=== PATIENT | male | born 1960 | race Caucasian/White ===

== ENCOUNTER 2022-11-03 13:35 | Inpatient (IN) ==
[2022-11-03] MEDS ORDERED: Lactated Ringers 1000 ml BAG 1,000 ML IV ONE ×2 (13:50→15:21)
[2022-11-03 14:35] LABS: Hemoglobin 13.5 g/dL (13.2-16.3); Mean Corpuscular Hgb Conc 33.8 g/dL (31-36); Mean Corpuscular Volume 82.9 fL (80-97); Mean Platelet Volume 7.1 fL (7.5-11.2); Platelet Count 252 10^3/uL (150-450); Red Blood Count 4.82 10^6/uL (4.06-5.63); Red Cell Distribution Width 14.9 % (12-17); White Blood Count 23.5 10^3/uL (3.6-10.2)
[2022-11-03 14:47] LABS: Alcohol, S < 13 mg/dL (<13)
[2022-11-03 14:49] LABS: ALT 25 U/L (7-52); AST 55 U/L (13-39); Albumin 3.6 g/dL (3.2-5.2); Albumin/Globulin Ratio 0.8 (1-3); Alkaline Phosphatase 115 U/L (35-149); Anion Gap 15 mmol/L (2-16); Blood Urea Nitrogen 21 mg/dL (6-24); C Reactive Protein 311.75 mg/L (<8.01); CO2 Carbon Dioxide 20 mmol/L (22-32); Calcium 8.8 mg/dL (8.6-10.3); Chloride 99 mmol/L (101-111); Creatinine, Serum 1.69 mg/dL (0.67-1.17); Globulin 4.5 g/dL (2-4); Glucose 255 mg/dL (70-100); Potassium 3.3 mmol/L (3.5-5.0); Sodium 134 mmol/L (135-145); Total Protein 8.1 g/dL (6.4-8.9); eGFR CKD-EPI 45.3 (>60)
[2022-11-03 14:55] LABS: High Sens Troponin Baseline 194 pg/mL (<20)
[2022-11-03 15:01] LABS: ABS Basophils 0.1 10^3/uL (0.0-0.1); ABS Lymphocytes 0.3 10^3/uL (1.0-4.8); ABS Monocytes 1.1 10^3/uL (0.0-1.1); Lymphocyte % 1.1 %
[2022-11-03 15:03] LABS: Activated Partial Thrombo Time 32.3 seconds (26.0-38.0); INR 1.34 (0.88-1.18)
[2022-11-03] MEDS ORDERED: Iodixanol (CONTRAST) 320 MG/ML 100 ML SDV IV ONE (15:03)
[2022-11-03] MEDS ORDERED: Vancomycin 1,500 MG in NS 0.9% 250 ml 250 ML IVPB ONE (15:20)
[2022-11-03] MEDS ORDERED: Cefepime 2 GM in Dextrose 2 GM/50 ML BAG IV ONE (15:20)
[2022-11-03 15:26] LABS: Creatine Kinase 5563 U/L (10-223)
[2022-11-03 16:03] LABS: High Sensitivity Troponin 1 Hr 207 pg/mL (<20)
[2022-11-03] MEDS ORDERED: LACTATED RINGERS IV ONE (16:32)
[2022-11-03] MEDS: Lactated Ringers 1000 ml BAG 1,000 ML IV ONE ×2 (16:47→17:14)
[2022-11-03] MEDS ORDERED: Dextrose 50% Syringe 50 ml 25 GM/50 ML SYRINGE IV PUSH PRN (18:04)
[2022-11-03] MEDS ORDERED: Potassium Chlor 20 meq TAB.ER PO ONE (18:06)
[2022-11-03 18:19] LABS: TSH Ultra Thyroid Stim Horm 2.78 mcIU/mL (0.34-5.60)
[2022-11-03 18:23] LABS: Venous Bicarbonate HCO3 27.2 mmol/L (24-28)
[2022-11-03 18:35] LABS: Magnesium 1.7 mg/dL (1.9-2.7)
[2022-11-03 21:44] LABS: Urine Appearance Cloudy; Urine Bilirubin Negative (Negative); Urine Blood 3+ (Negative); Urine Color Amber; Urine Glucose Negative (Negative); Urine Ketones Negative (Negative); Urine Nitrite Negative (Negative); Urine Protein 2+(100 mg/dL) (Negative); Urine Urobilinogen Negative (Negative)
[2022-11-03 21:50] LABS: Urine Amorphous Crystals Present (Absent); Urine Bacteria Absent (Absent); Urine Red Blood Cell 3+(>10/hpf) (Absent); Urine Squamous Epithelial Cell Present (Absent); Urine White Blood Cell 1+(6-10/hpf) (Absent)
[2022-11-03 22:12] LABS: Urine Specific Gravity > 1.060 (1.002-1.030)
[2022-11-03] MEDS: Enoxaparin 40 MG/0.4 ML SYR SUBCUT SCH (22:16)
[2022-11-03] MEDS ORDERED: cefTRIAXone 2 gm/50 mL D5W 2 GM/50 ML BAG IV SCH (22:45)
[2022-11-03] MEDS: Lactated Ringers 1000 ml BAG 1,000 ML IV SCH (22:51)
[2022-11-03] MEDS: Acetaminophen IV 1 GM/100ML 1,000 MG/100 ML BAG IV PRN (22:51)
[2022-11-03] MEDS: Azithromycin 500 mg/250 ml NS 500 MG/250 ML BAG IVPB SCH (23:19)
[2022-11-04] MEDS: cefTRIAXone 2 gm/50 mL D5W 2 GM/50 ML BAG IV SCH (04:37)
[2022-11-04] MEDS: Acetaminophen IV 1 GM/100ML 1,000 MG/100 ML BAG IV PRN (05:01)
[2022-11-04 05:11] LABS: ABS Lymphocytes 0.5 10^3/uL (1.0-4.8); ABS Neutrophils 16.2 10^3/uL (1.5-7.6); ABS Nucleated RBC 0.01 10^3/ul; Hematocrit 37.4 % (38-53); Hemoglobin 12.7 g/dL (13.2-16.3); Lymphocyte % 2.9 %; Mean Corpuscular Hemoglobin 28.2 pg (27-33); Mean Corpuscular Hgb Conc 33.9 g/dL (31-36); Mean Corpuscular Volume 83.1 fL (80-97); Platelet Count 215 10^3/uL (150-450); White Blood Count 17.8 10^3/uL (3.6-10.2)
[2022-11-04 05:27] LABS: Albumin/Globulin Ratio 0.7 (1-3); Calcium 8.2 mg/dL (8.6-10.3); Creatinine, Serum 1.61 mg/dL (0.67-1.17); Globulin 4.2 g/dL (2-4); HDL Cholesterol 22.4 mg/dL; Magnesium 1.8 mg/dL (1.9-2.7); Phosphorus 2.5 mg/dL (2.5-5.0); Potassium 3.5 mmol/L (3.5-5.0); Total Bilirubin 0.8 mg/dL (0.2-1.0); Total Protein 7.2 g/dL (6.4-8.9); eGFR CKD-EPI 48.1 (>60)
[2022-11-04] MEDS: Lactated Ringers 1000 ml BAG 1,000 ML IV SCH ×2 (07:00→19:30)
[2022-11-04] MEDS ORDERED: Potassium Chlor 20 meq TAB.ER PO ONE (07:47)
[2022-11-04] MEDS ORDERED: Magnesium Sulfate 2 gm BAG 2 GM/50 ML BAG IVPB ONE (07:47)
[2022-11-04] MEDS: Enoxaparin 40 MG/0.4 ML SYR SUBCUT SCH (19:36)
[2022-11-04] MEDS: Azithromycin 500 mg/250 ml NS 500 MG/250 ML BAG IVPB SCH (22:12)
[2022-11-05] MEDS: cefTRIAXone 2 gm/50 mL D5W 2 GM/50 ML BAG IV SCH (03:37)
[2022-11-05 05:11] LABS: ABS Lymphocytes 0.5 10^3/uL (1.0-4.8); ABS Monocytes 0.6 10^3/uL (0.0-1.1); ABS Neutrophils 8.9 10^3/uL (1.5-7.6); Hemoglobin 12.1 g/dL (13.2-16.3); Lymphocyte % 5.3 %; Mean Corpuscular Hemoglobin 28.4 pg (27-33); Mean Corpuscular Hgb Conc 34.6 g/dL (31-36); Mean Corpuscular Volume 82.2 fL (80-97); Platelet Count 195 10^3/uL (150-450); Red Blood Count 4.26 10^6/uL (4.06-5.63)
[2022-11-05] MEDS: Lactated Ringers 1000 ml BAG 1,000 ML IV SCH (05:28)
[2022-11-05 05:29] LABS: Albumin 2.8 g/dL (3.2-5.2); Albumin/Globulin Ratio 0.8 (1-3); Calcium 7.5 mg/dL (8.6-10.3); Creatinine, Serum 1.1 mg/dL (0.67-1.17); Globulin 3.7 g/dL (2-4); Magnesium 2.1 mg/dL (1.9-2.7); Phosphorus 2.3 mg/dL (2.5-5.0); Potassium 3.3 mmol/L (3.5-5.0); Total Bilirubin 0.5 mg/dL (0.2-1.0); Total Protein 6.5 g/dL (6.4-8.9); eGFR CKD-EPI 75.9 (>60)
[2022-11-05] MEDS ORDERED: Potassium Chlor 20 meq TAB.ER PO ONE ×2 (07:14→10:00)
[2022-11-05 17:07] LABS: ABS Lymphocytes 0.6 10^3/uL (1.0-4.8); ABS Monocytes 0.5 10^3/uL (0.0-1.1); ABS Neutrophils 6.3 10^3/uL (1.5-7.6); Eosinophil % 0.1 %; Hematocrit 32.8 % (38-53); Hemoglobin 11.2 g/dL (13.2-16.3); Lymphocyte % 8.1 %; Mean Corpuscular Hemoglobin 28.1 pg (27-33); Mean Corpuscular Hgb Conc 34.1 g/dL (31-36); Mean Corpuscular Volume 82.5 fL (80-97); Mean Platelet Volume 7.3 fL (7.5-11.2); Platelet Count 178 10^3/uL (150-450); Red Blood Count 3.98 10^6/uL (4.06-5.63); White Blood Count 7.5 10^3/uL (3.6-10.2)
[2022-11-05] MEDS: Enoxaparin 40 MG/0.4 ML SYR SUBCUT SCH (18:51)
[2022-11-05] MEDS: Azithromycin 500 mg/250 ml NS 500 MG/250 ML BAG IVPB SCH (23:39)
[2022-11-06] MEDS: cefTRIAXone 2 gm/50 mL D5W 2 GM/50 ML BAG IV SCH (04:11)
[2022-11-06 05:52] LABS: ABS Lymphocytes 0.6 10^3/uL (1.0-4.8); ABS Monocytes 0.6 10^3/uL (0.0-1.1); ABS Neutrophils 4.9 10^3/uL (1.5-7.6); ABS Nucleated RBC 0.01 10^3/ul; Eosinophil % 0.2 %; Hematocrit 33.4 % (38-53); Hemoglobin 11.5 g/dL (13.2-16.3); Lymphocyte % 9.5 %; Mean Corpuscular Hemoglobin 28.5 pg (27-33); Mean Corpuscular Hgb Conc 34.4 g/dL (31-36); Mean Platelet Volume 7.1 fL (7.5-11.2); Nucleated Red Blood Cells % 0.1 /100 WBC (0.0-0.4); Platelet Count 176 10^3/uL (150-450); Red Blood Count 4.03 10^6/uL (4.06-5.63); Red Cell Distribution Width 15.1 % (12-17); White Blood Count 6.1 10^3/uL (3.6-10.2)
[2022-11-06 06:12] LABS: Albumin 2.7 g/dL (3.2-5.2); Albumin/Globulin Ratio 0.8 (1-3); Calcium 7.4 mg/dL (8.6-10.3); Creatinine, Serum 0.94 mg/dL (0.67-1.17); Globulin 3.5 g/dL (2-4); Magnesium 1.8 mg/dL (1.9-2.7); Phosphorus 2.4 mg/dL (2.5-5.0); Potassium 3.6 mmol/L (3.5-5.0); Total Bilirubin 0.3 mg/dL (0.2-1.0); Total Protein 6.2 g/dL (6.4-8.9); eGFR CKD-EPI 91.7 (>60)
[2022-11-06] MEDS: Enoxaparin 40 MG/0.4 ML SYR SUBCUT SCH (18:02)
[2022-11-06] MEDS: Azithromycin 500 mg/250 ml NS 500 MG/250 ML BAG IVPB SCH (23:13)
[2022-11-07] MEDS: cefTRIAXone 2 gm/50 mL D5W 2 GM/50 ML BAG IV SCH (03:28)
[2022-11-07 06:31] LABS: ABS Eosinophils 0.1 10^3/uL (0.0-0.5); ABS Lymphocytes 0.6 10^3/uL (1.0-4.8); ABS Monocytes 0.6 10^3/uL (0.0-1.1); ABS Neutrophils 4.6 10^3/uL (1.5-7.6); ABS Nucleated RBC 0.01 10^3/ul; Eosinophil % 0.9 %; Hematocrit 33.9 % (38-53); Hemoglobin 11.5 g/dL (13.2-16.3); Lymphocyte % 10.3 %; Mean Corpuscular Hemoglobin 28.2 pg (27-33); Mean Corpuscular Hgb Conc 34.1 g/dL (31-36); Mean Corpuscular Volume 82.8 fL (80-97); Mean Platelet Volume 7.2 fL (7.5-11.2); Nucleated Red Blood Cells % 0.2 /100 WBC (0.0-0.4); Platelet Count 194 10^3/uL (150-450); Red Cell Distribution Width 15.4 % (12-17); White Blood Count 5.9 10^3/uL (3.6-10.2)
[2022-11-07 06:48] LABS: Calcium 7.6 mg/dL (8.6-10.3); Creatinine, Serum 0.78 mg/dL (0.67-1.17); Magnesium 1.8 mg/dL (1.9-2.7); Phosphorus 2.6 mg/dL (2.5-5.0); eGFR CKD-EPI 100.8 (>60)
[2022-11-07] MEDS: Enoxaparin 40 MG/0.4 ML SYR SUBCUT SCH (18:25)
[2022-11-07] MEDS: Azithromycin 500 mg/250 ml NS 500 MG/250 ML BAG IVPB SCH (23:53)
[2022-11-08] MEDS: cefTRIAXone 2 gm/50 mL D5W 2 GM/50 ML BAG IV SCH (03:14)
[2022-11-08 08:37] LABS: ABS Basophils 0.1 10^3/uL (0.0-0.1); ABS Eosinophils 0.1 10^3/uL (0.0-0.5); ABS Lymphocytes 0.8 10^3/uL (1.0-4.8); ABS Monocytes 0.6 10^3/uL (0.0-1.1); ABS Neutrophils 4.5 10^3/uL (1.5-7.6); Eosinophil % 1.7 %; Hemoglobin 11.8 g/dL (13.2-16.3); Lymphocyte % 13.1 %; Mean Corpuscular Hemoglobin 28.1 pg (27-33); Mean Corpuscular Hgb Conc 33.7 g/dL (31-36); Mean Corpuscular Volume 83.4 fL (80-97); Nucleated Red Blood Cells % 0.1 /100 WBC (0.0-0.4); Platelet Count 237 10^3/uL (150-450); Red Blood Count 4.19 10^6/uL (4.06-5.63); Red Cell Distribution Width 15.5 % (12-17)
[2022-11-08 09:05] LABS: Calcium 7.8 mg/dL (8.6-10.3); Creatinine, Serum 0.72 mg/dL (0.67-1.17); Magnesium 1.9 mg/dL (1.9-2.7); Potassium 3.9 mmol/L (3.5-5.0); eGFR CKD-EPI 103.3 (>60)
[2022-11-08] MEDS: Enoxaparin 40 MG/0.4 ML SYR SUBCUT SCH (18:17)
[2022-11-08] MEDS: Azithromycin 500 mg/250 ml NS 500 MG/250 ML BAG IVPB SCH (22:55)
[2022-11-09] MEDS: Enoxaparin 40 MG/0.4 ML SYR SUBCUT SCH (17:38)
[2022-11-10 06:55] LABS: Calcium 8.4 mg/dL (8.6-10.3); Creatinine, Serum 0.72 mg/dL (0.67-1.17); Magnesium 1.9 mg/dL (1.9-2.7); Potassium 4.2 mmol/L (3.5-5.0); eGFR CKD-EPI 103.3 (>60)
[2022-11-10] MEDS: Enoxaparin 40 MG/0.4 ML SYR SUBCUT SCH (17:38)
[2022-11-11 14:34] VITALS: BP 115/65
== END 2022-11-11 17:50 | disposition home or self-care (01) | DRG 871 ==
LOC: ED 13:35 → SUATTDRO 17:21 → EDHOLD 17:21 → ICU 19:06 → MEDTELE 11-04 09:35
PROVIDERS: ADMIT Internal Medicine; ATTEND Internal Medicine